=== PATIENT | male | born 1975 | race Caucasian/White ===

== ENCOUNTER 2018-09-25 05:40 | Observation (INO) | payer BC, OTHER ==
[2018-09-25] MEDS ORDERED: Aspirin 81 MG Tab.Chew PO ONE (05:55)
[2018-09-25] MEDS ORDERED: Sodium Chloride 0.9% 2.5 ML Syringe FLUSH PRN (05:56)
[2018-09-25] MEDS ORDERED: Sodium Chloride 0.9% 10 ML Syringe FLUSH PRN (05:56)
[2018-09-25] MEDS ORDERED: Labetalol 20 MG/4 ML Syringe IVPUSH ONE (05:56)
[2018-09-25] MEDS ORDERED: Nitroglycerin 2% Oint 1 GM UD Packet TOP ONE (05:56)
--- NOTE | 2018-09-25 05:57 | EDM.PDOC ---
ED HPI GENERAL MEDICAL PROBLEM - General Chief Complaint: Cardiovascular Problem Stated Complaint: CHEST PAIN AND SHORTNESS OF BREATH Time Seen by Provider: 09/25/18 05:48 - History of Present Illness INITIAL COMMENTS - FREE TEXT/NARRATIVE: HISTORY AND PHYSICAL: History of present illness: The patient is a 43-year-old male with a history of hypertension who is supposed to be taking lisinopril and hydrochlorothiazide but ran out of his meds 3 weeks ago due to relocation to [place] from [place] and not having a provider and who presents tonight with complaints of shortness of breath for the last one month cough and congestion for the last several days and elevated blood pressure of 200/150 at home this evening. The patient says that his shortness of breath started in mid July when he had a bronchitis and then he became more congested and thought he had some fluid in his lungs but he did not seek care from a provider. He said he thought he was improving and over the last 3 days it has gotten worse with more cough and congestion. He has not had a fever nausea or vomiting no abdominal pain and no urinary complaints. He denies any chest pain to me but says that his shortness of breath has been progressive since mid July. He also says that he has been out of his blood pressure medication and tonight his blood pressure was 200/150 and he thought he should be evaluated. The patient denies any leg pain or swelling. He has no cardiac history and on my evaluation he specifically tells me he is not having chest pain he is just feeling more short of breath. The patient has no history of asthma or COPD. the patient is telling me that he cannot lay flat in bed for the last 1 week and sleep because he feels short of breath and has been sleeping in a chair Review of systems: As per history of present illness and below otherwise all systems reviewed and negative. Past medical history: As per history of present illness and as reviewed below otherwise noncontributory. Surgical history: As per history of present illness and as reviewed below otherwise noncontributory. Social history: No reported history of drug or alcohol abuse. Family history: As per history of present illness and as reviewed below otherwise noncontributory. Physical exam: General: Well-developed well-nourished man who is nontoxic and vital signs are noted by me. His elevated blood pressure and tachycardia are also noted. He is speaking clearly and easily in the ED without breathlessness. It is noted that when the patient lays down for the physical exam as soon as I'm done with the abdominal exam he prefers to be in the seated position and not in the supine position HEENT: Atraumatic, normocephalic, negative for conjunctival pallor or scleral icterus, mucous membranes moist, throat clear, neck supple, nontender, trachea midline. Lungs: Clear to auscultation with some occasional coarse breath sounds but there are no rales or rhonchi no wheezing and no stridor and no work of breathing, breath sounds equal bilaterally, chest nontender. Heart: S1S2, regular rhythm but tachycardic rate on my evaluation of 110 and no overt murmur is appreciated. Abdomen: Soft, nondistended, nontender. Negative for masses or hepatosplenomegaly. Negative for costovertebral tenderness. Pelvis: Stable nontender. Genitourinary: Deferred. Rectal: Deferred. Extremities: Atraumatic, negative for cords or calf pain. Neurovascular unremarkable. No pedal edema or leg asymmetry Neuro: Awake, alert, oriented. Cranial nerves II through XII unremarkable. Cerebellum unremarkable. Motor and sensory unremarkable throughout. Exam nonfocal. Skin: There are no overt rashes or lesions and turgor is normal and there is no diaphoresis. The patient does have a somewhat sallow appearance of his skin color Diagnostics: EKG CBC CMP BNP troponin lactic acid influenza swab UA chest x-ray Therapeutics: IV O2 monitor aspirin labetalol and Nitropaste Repeat blood pressure is 209/142 but his heart rate is now 82 and the patient overall looks much better and feels better. He has better color and is able to sit back and relax. He says his breathing is also improving. We'll continue to monitor his workup and I have already discussed with the patient that he will likely need admission for blood pressure control and possible diuresis and he states understanding and is agreeable. 0700: Case is discussed with Dr. Valle who is aware of testing results and agrees with admission. He is aware of the troponin and the pending BNP. He would like to hold Lasix at this time until he evaluates the patient and the patient is aware that he will be admitted to the hospital and is agreeable. Patient overall looks much clinically improved Impression: Hypertension Urgency Definitive disposition and diagnosis as appropriate pending reevaluation and review of above. - Related Data Allergies Allergy/AdvReac Type Severity Reaction Status Date / Time No Known Allergies Allergy Verified 09/25/18 05:49 Home Meds: Home Meds Lisinopril 10 mg PO DAILY 05/13/18 [History] hydroCHLOROthiazide [Hydrochlorothiazide] 1 tab PO DAILY 09/25/18 [History] Past Medical History HEENT History: Reports: Impaired Vision Other HEENT History: wears glasses Cardiovascular History: Reports: Hypertension Genitourinary History: Reports: Renal Calculus - Infectious Disease History Infectious Disease History: Reports: Chicken Pox Social & Family History - Family History Family Medical History: Noncontributory - Tobacco Use Smoking Status *Q: Never Smoker - Recreational Drug Use Recreational Drug Use: No ED ROS GENERAL - Review of Systems Review Of Systems: ROS reveals no pertinent complaints other than HPI. ED EXAM, GENERAL - Physical Exam Exam: See Below (see dictation) Course - Vital Signs Last Recorded V/S: Last Vital Signs Temp 36.4 C 09/25/18 05:40 Pulse 80 09/25/18 06:54 Resp 18 09/25/18 06:54 BP 194/143 H 09/25/18 06:54 Pulse Ox 92 L 09/25/18 06:54 - Orders/Labs/Meds Orders: Active Orders 24 hr Category Date Time Status Cardiac Monitoring [RC] . DIRECTED Care 09/25/18 05:54 Active EKG 12 Lead [EKG Documentation Completion] [RC] STAT Care 09/25/18 06:55 Active EKG Documentation Completion [RC] STAT Care 09/25/18 05:54 Active Oxygen Therapy, ED [RC] ASDIRECTED Care 09/25/18 05:54 Active Pulse Oximetry [RC] ASDIRECTED Care 09/25/18 05:54 Active B-TYPE NATRIURETIC PEPTIDE,BNP [CHEM] Stat Lab 09/25/18 06:00 Received UA RFX PANKAJ AND CULT IF INDIC [URIN] Stat Lab 09/25/18 05:54 Ordered Sodium Chloride 0.9% [Saline Flush] Med 09/25/18 05:56 Active 10 ml FLUSH ASDIRECTED PRN Sodium Chloride 0.9% [Saline Flush] Med 09/25/18 05:56 Active 2.5 ml FLUSH ASDIRECTED PRN Saline Lock Insert [OM.PC] Stat Oth 09/25/18 05:54 Ordered Medication Orders Sodium Chloride (Saline Flush) 10 ml FLUSH ASDIRECTED PRN PRN Reason: Keep Vein Open Last Admin: 09/25/18 06:08 Dose: 10 ml Sodium Chloride (Saline Flush) 2.5 ml FLUSH ASDIRECTED PRN PRN Reason: Keep Vein Open Last Admin: 09/25/18 06:08 Dose: 2.5 ml Labs: Laboratory Tests 09/25/18 09/25/18 09/25/18 Range/Units 06:00 06:00 06:00 WBC 9.86 (4.0-11.0) K/uL RBC 4.83 (4.50-5.90) M/uL Hgb 14.5 (13.0-17.0) g/dL Hct 41.0 (38.0-50.0) % MCV 84.9 (80.0-98.0) fL MCH 30.0 (27.0-32.0) pg MCHC 35.4 (31.0-37.0) g/dL RDW Std Deviation 46.9 (28.0-62.0) fl RDW Coeff of Samson 15 (11.0-15.0) % Plt Count 242 (150-400) K/uL MPV 10.20 (7.40-12.00) fL Neut % (Auto) 81.1 H (48.0-80.0) % Lymph % (Auto) 11.6 L (16.0-40.0) % [place] % (Auto) 6.0 (0.0-15.0) % Eos % (Auto) 0.6 (0.0-7.0) % Baso % (Auto) 0.7 (0.0-1.5) % Neut # (Auto) 8.0 H (1.4-5.7) K/uL Lymph # (Auto) 1.1 (0.6-2.4) K/uL [place] # (Auto) 0.6 (0.0-0.8) K/uL Eos # (Auto) 0.1 (0.0-0.7) K/uL Baso # (Auto) 0.1 (0.0-0.1) K/uL Nucleated RBC % 0.0 /100WBC Nucleated RBCs # 0 K/uL Lactate 1.3 (0.20-2.00) mmol/L Sodium 141 (136-148) mmol/L Potassium 3.2 L (3.5-5.1) mmol/L Chloride 104 (98-107) mmol/L Carbon Dioxide 26.9 (21.0-32.0) mmol/L BUN 22 H (7.0-18.0) mg/dL Creatinine 2.2 H (0.8-1.3) mg/dL Est Cr Clr Drug Dosing 49.30 mL/min Estimated GFR (MDRD) 32.5 ml/min Glucose 113 H (74-106) mg/dL Calcium 8.9 (8.5-10.1) mg/dL Total Bilirubin 0.8 (0.2-1.0) mg/dL AST 26 (15-37) IU/L ALT 41 (14-63) IU/L Alkaline Phosphatase 106 (46-116) U/L Troponin I 0.077 H* (0.000-0.056) ng/mL Total Protein 7.7 (6.4-8.2) g/dL Albumin 3.5 (3.4-5.0) g/dL Globulin 4.2 H (2.6-4.0) g/dL Albumin/Globulin Ratio 0.8 L (0.9-1.6) Meds: Medications Generic Name Dose Route Start Last Admin Trade Name Freq PRN Reason Stop Dose Admin Sodium Chloride 10 ml 09/25/18 05:56 09/25/18 06:08 Saline Flush FLUSH 10 ml ASDIRECTED PRN Administration Keep Vein Open Sodium Chloride 2.5 ml 09/25/18 05:56 09/25/18 06:08 Saline Flush FLUSH 2.5 ml ASDIRECTED PRN Administration Keep Vein Open Discontinued Medications Generic Name Dose Route Start Last Admin Trade Name Freq PRN Reason Stop Dose Admin Aspirin 324 mg 09/25/18 05:55 09/25/18 06:08 Aspirin PO 09/25/18 05:56 324 mg ONETIME ONE Administration Labetalol HCl 20 mg 09/25/18 05:56 09/25/18 06:07 Normodyne IVPUSH 09/25/18 05:57 20 mg NOW ONE Administration Protocol Nitroglycerin 0.5 gm 09/25/18 05:56 09/25/18 06:08 Nitro-Bid 2% TOP 09/25/18 05:57 0.5 gm ONETIME ONE Administration Departure - Departure Time of Disposition: 07:03 Disposition: Refer to Observation Reason for Transfer *Q: Primary PCI Indicated Condition: Good Clinical Impression: Hypertensive urgency Forms: ED Department Discharge - My Orders Last 24 Hours: My Active Orders 09/25/18 05:54 Cardiac Monitoring [RC] . DIRECTED EKG Documentation Completion [RC] STAT Oxygen Therapy, ED [RC] ASDIRECTED Pulse Oximetry [RC] ASDIRECTED UA RFX PANKAJ AND CULT IF INDIC [URIN] Stat Saline Lock Insert [OM.PC] Stat 09/25/18 05:56 Sodium Chloride 0.9% [Saline Flush] 10 ml FLUSH ASDIRECTED PRN Sodium Chloride 0.9% [Saline Flush] 2.5 ml FLUSH ASDIRECTED PRN 09/25/18 06:00 B-TYPE NATRIURETIC PEPTIDE,BNP [CHEM] Stat 09/25/18 06:55 EKG 12 Lead [EKG Documentation Completion] [RC] STAT - Assessment/Plan Last 24 Hours: My Active Orders 09/25/18 05:54 Cardiac Monitoring [RC] . DIRECTED EKG Documentation Completion [RC] STAT Oxygen Therapy, ED [RC] ASDIRECTED Pulse Oximetry [RC] ASDIRECTED UA RFX PANKAJ AND CULT IF INDIC [URIN] Stat Saline Lock Insert [OM.PC] Stat 09/25/18 05:56 Sodium Chloride 0.9% [Saline Flush] 10 ml FLUSH ASDIRECTED PRN Sodium Chloride 0.9% [Saline Flush] 2.5 ml FLUSH ASDIRECTED PRN 09/25/18 06:00 B-TYPE NATRIURETIC PEPTIDE,BNP [CHEM] Stat 09/25/18 06:55 EKG 12 Lead [EKG Documentation Completion] [RC] STAT
--- NOTE | 2018-09-25 06:17 | CR ---
INDICATION: chest pain/shortness of breath. 1 image. no prior TECHNIQUE: Chest 1 view. COMPARISON: None. FINDINGS: Cardiovascular and mediastinum: Heart size and vasculature are normal in caliber and appearance. Mediastinum is within normal limits. Lungs and pleural space: Lungs are clear. No sign of infiltrate or mass. No sign of pleural effusion. No pneumothorax. Bones and soft tissues: No significant findings. IMPRESSION: Unremarkable chest. Dictated by: Gavin Bethea MD @ 09/25/2018 06:16:09 (Electronically Signed)
[2018-09-25] MEDS ORDERED: Furosemide 40 MG/4 ML VIAL IVPUSH ONE (09:40)
[2018-09-25] MEDS ORDERED: Lisinopril 10 MG Tab PO SCH (09:45)
[2018-09-25] MEDS: Heparin Sodium 5,000 Units/ML Vial SUBCUT SCH ×3 (10:32→21:14)
[2018-09-25] MEDS: Acetaminophen 325 MG Tab PO PRN ×2 (10:33→17:23)
[2018-09-25] MEDS: Hydrochlorothiazide 25 MG Tab PO SCH (10:33)
[2018-09-25] MEDS ORDERED: cloNIDine 0.1 MG Tab PO ONE (16:44)
[2018-09-25] MEDS ORDERED: Potassium Chloride 20 MEQ Tab.ER PO ONE (19:29)
--- NOTE | 2018-09-25 19:35 | PCM.HP ---
H&P History of Present Illness - General Date of Service: 09/25/18 Admit Problem/Dx: Admission Diagnosis/Problem Admission Diagnosis/Problem Hypertensive urgency - History of Present Illness Initial Comments - Free Text/Narative: 43 yo male with pmh of hypertension who ran out of his HCTZ and lisinopril medications three months ago. He presents today with a complaint of elevated blood pressure in the 200s systolic and not feeling well. He does admit to shortness of breath when lying down. He denies any exertional dyspnea, leg swelling or weight gain. He reports a history of kidney stones but denies any other kidney disease. He beleives his shortness of breath was cause by eating cheese as he is lactose intolerant. - Related Data Allergies/Adverse Reactions: Allergies Allergy/AdvReac Type Severity Reaction Status Date / Time Latex, Natural Rubber Allergy Rash Verified 09/25/18 08:50 Home Medications: Home Meds Lisinopril 10 mg PO DAILY 05/13/18 [History] hydroCHLOROthiazide [Hydrochlorothiazide] 25 mg PO DAILY 09/25/18 [History] Past Medical History - Past Health History Medical/Surgical History: Denies Medical/Surgical History HEENT History: Reports: Impaired Vision Other HEENT History: wears glasses, Tubes in ears, Ruptured ear drum/possibly both Cardiovascular History: Reports: Hypertension Respiratory History: Reports: Asthma Other Respiratory History: Asthma as a child Genitourinary History: Reports: Renal Calculus Other Musculoskeletal History: Hx of Shoulder seperation - Infectious Disease History Infectious Disease History: Reports: Chicken Pox - Past Surgical History GI Surgical History: Reports: Appendectomy Other GI Surgeries/Procedures: Appendicitis, Burst. Social & Family History - Family History Family Medical History: Noncontributory - Tobacco Use Smoking Status *Q: Never Smoker - Caffeine Use Caffeine Use: Reports: Coffee Other Caffeine Use: 2x per week - Recreational Drug Use Recreational Drug Use: No H&P Review of Systems - Review of Systems: Review Of Systems: ROS reveals no pertinent complaints other than HPI. Exam - Exam Exam: See Below - Vital Signs Vital Signs: Last Vital Signs Temp 36.3 C 09/25/18 15:13 Pulse 92 09/25/18 15:13 Resp 30 H 09/25/18 15:13 BP 196/131 H 09/25/18 17:21 Pulse Ox 95 04/07/19 15:13 Weight: 122.243 kg - Exam General: Alert, Oriented Neck: Supple, Trachea Midline Lungs: Clear to Auscultation, Normal Respiratory Effort Cardiovascular: Regular Rate, Regular Rhythm GI/Abdominal Exam: Normal Bowel Sounds, Soft, Non-Tender Extremities: Non-Tender, Pedal Edema (mild pedal) Skin: Warm, Dry, Intact - Patient Data Lab Results Last 24 hrs: Laboratory Results - last 24 hr 09/25/18 09/25/18 09/25/18 Range/Units 06:00 06:00 06:00 WBC 9.86 (4.0-11.0) K/uL RBC 4.83 (4.50-5.90) M/uL Hgb 14.5 (13.0-17.0) g/dL Hct 41.0 (38.0-50.0) % MCV 84.9 (80.0-98.0) fL MCH 30.0 (27.0-32.0) pg MCHC 35.4 (31.0-37.0) g/dL RDW Std Deviation 46.9 (28.0-62.0) fl RDW Coeff of Samson 15 (11.0-15.0) % Plt Count 242 (150-400) K/uL MPV 10.20 (7.40-12.00) fL Neut % (Auto) 81.1 H (48.0-80.0) % Lymph % (Auto) 11.6 L (16.0-40.0) % [place] % (Auto) 6.0 (0.0-15.0) % Eos % (Auto) 0.6 (0.0-7.0) % Baso % (Auto) 0.7 (0.0-1.5) % Neut # (Auto) 8.0 H (1.4-5.7) K/uL Lymph # (Auto) 1.1 (0.6-2.4) K/uL [place] # (Auto) 0.6 (0.0-0.8) K/uL Eos # (Auto) 0.1 (0.0-0.7) K/uL Baso # (Auto) 0.1 (0.0-0.1) K/uL Nucleated RBC % 0.0 /100WBC Nucleated RBCs # 0 K/uL Lactate 1.3 (0.20-2.00) mmol/L Sodium 141 (136-148) mmol/L Potassium 3.2 L (3.5-5.1) mmol/L Chloride 104 (98-107) mmol/L Carbon Dioxide 26.9 (21.0-32.0) mmol/L BUN 22 H (7.0-18.0) mg/dL Creatinine 2.2 H (0.8-1.3) mg/dL Est Cr Clr Drug Dosing 49.30 mL/min Estimated GFR (MDRD) 32.5 ml/min Glucose 113 H (74-106) mg/dL POC Glucose (60-110) mg/dL Calcium 8.9 (8.5-10.1) mg/dL Total Bilirubin 0.8 (0.2-1.0) mg/dL AST 26 (15-37) IU/L ALT 41 (14-63) IU/L Alkaline Phosphatase 106 (46-116) U/L Troponin I 0.077 H* (0.000-0.056) ng/mL B-Natriuretic Peptide (<100) PG/ML Total Protein 7.7 (6.4-8.2) g/dL Albumin 3.5 (3.4-5.0) g/dL Globulin 4.2 H (2.6-4.0) g/dL Albumin/Globulin Ratio 0.8 L (0.9-1.6) Urine Color Urine Appearance Urine pH (5.0-8.0) Ur Specific [place] (1.001-1.035) Urine Protein (NEGATIVE) mg/dL Urine Glucose (UA) (NEGATIVE) mg/dL Urine Ketones (NEGATIVE) mg/dL Urine Occult Blood (NEGATIVE) Urine Nitrite (NEGATIVE) Urine Bilirubin (NEGATIVE) Urine Urobilinogen (<2.0) EU/dL Ur Leukocyte Esterase (NEGATIVE) Urine RBC (0-2/HPF) Urine WBC (0-5/HPF) Ur Epithelial Cells (NONE-FEW) Amorphous Sediment (NEGATIVE) Urine Bacteria (NEGATIVE) 09/25/18 09/25/18 09/25/18 Range/Units 06:00 07:20 11:53 WBC (4.0-11.0) K/uL RBC (4.50-5.90) M/uL Hgb (13.0-17.0) g/dL Hct (38.0-50.0) % MCV (80.0-98.0) fL MCH (27.0-32.0) pg MCHC (31.0-37.0) g/dL RDW Std Deviation (28.0-62.0) fl RDW Coeff of Samson (11.0-15.0) % Plt Count (150-400) K/uL MPV (7.40-12.00) fL Neut % (Auto) (48.0-80.0) % Lymph % (Auto) (16.0-40.0) % [place] % (Auto) (0.0-15.0) % Eos % (Auto) (0.0-7.0) % Baso % (Auto) (0.0-1.5) % Neut # (Auto) (1.4-5.7) K/uL Lymph # (Auto) (0.6-2.4) K/uL [place] # (Auto) (0.0-0.8) K/uL Eos # (Auto) (0.0-0.7) K/uL Baso # (Auto) (0.0-0.1) K/uL Nucleated RBC % /100WBC Nucleated RBCs # K/uL Lactate (0.20-2.00) mmol/L Sodium (136-148) mmol/L Potassium (3.5-5.1) mmol/L Chloride (98-107) mmol/L Carbon Dioxide (21.0-32.0) mmol/L BUN (7.0-18.0) mg/dL Creatinine (0.8-1.3) mg/dL Est Cr Clr Drug Dosing mL/min Estimated GFR (MDRD) ml/min Glucose (74-106) mg/dL POC Glucose (60-110) mg/dL Calcium (8.5-10.1) mg/dL Total Bilirubin (0.2-1.0) mg/dL AST (15-37) IU/L ALT (14-63) IU/L Alkaline Phosphatase (46-116) U/L Troponin I 0.061 H* (0.000-0.056) ng/mL B-Natriuretic Peptide 251 H (<100) PG/ML Total Protein (6.4-8.2) g/dL Albumin (3.4-5.0) g/dL Globulin (2.6-4.0) g/dL Albumin/Globulin Ratio (0.9-1.6) Urine Color YELLOW Urine Appearance SLT CLOUDY Urine pH 6.0 (5.0-8.0) Ur Specific [place] 1.025 (1.001-1.035) Urine Protein 100 H (NEGATIVE) mg/dL Urine Glucose (UA) NEGATIVE (NEGATIVE) mg/dL Urine Ketones NEGATIVE (NEGATIVE) mg/dL Urine Occult Blood SMALL H (NEGATIVE) Urine Nitrite NEGATIVE (NEGATIVE) Urine Bilirubin NEGATIVE (NEGATIVE) Urine Urobilinogen 0.2 (<2.0) EU/dL Ur Leukocyte Esterase NEGATIVE (NEGATIVE) Urine RBC 0-2 (0-2/HPF) Urine WBC 0-2 (0-5/HPF) Ur Epithelial Cells RARE (NONE-FEW) Amorphous Sediment LIGHT (NEGATIVE) Urine Bacteria FEW (NEGATIVE) 09/25/18 09/25/18 Range/Units 17:26 18:00 WBC (4.0-11.0) K/uL RBC (4.50-5.90) M/uL Hgb (13.0-17.0) g/dL Hct (38.0-50.0) % MCV (80.0-98.0) fL MCH (27.0-32.0) pg MCHC (31.0-37.0) g/dL RDW Std Deviation (28.0-62.0) fl RDW Coeff of Samson (11.0-15.0) % Plt Count (150-400) K/uL MPV (7.40-12.00) fL Neut % (Auto) (48.0-80.0) % Lymph % (Auto) (16.0-40.0) % [place] % (Auto) (0.0-15.0) % Eos % (Auto) (0.0-7.0) % Baso % (Auto) (0.0-1.5) % Neut # (Auto) (1.4-5.7) K/uL Lymph # (Auto) (0.6-2.4) K/uL [place] # (Auto) (0.0-0.8) K/uL Eos # (Auto) (0.0-0.7) K/uL Baso # (Auto) (0.0-0.1) K/uL Nucleated RBC % /100WBC Nucleated RBCs # K/uL Lactate (0.20-2.00) mmol/L Sodium (136-148) mmol/L Potassium (3.5-5.1) mmol/L Chloride (98-107) mmol/L Carbon Dioxide (21.0-32.0) mmol/L BUN (7.0-18.0) mg/dL Creatinine (0.8-1.3) mg/dL Est Cr Clr Drug Dosing mL/min Estimated GFR (MDRD) ml/min Glucose (74-106) mg/dL POC Glucose 103 (60-110) mg/dL Calcium (8.5-10.1) mg/dL Total Bilirubin (0.2-1.0) mg/dL AST (15-37) IU/L ALT (14-63) IU/L Alkaline Phosphatase (46-116) U/L Troponin I 0.052 (0.000-0.056) ng/mL B-Natriuretic Peptide (<100) PG/ML Total Protein (6.4-8.2) g/dL Albumin (3.4-5.0) g/dL Globulin (2.6-4.0) g/dL Albumin/Globulin Ratio (0.9-1.6) Urine Color Urine Appearance Urine pH (5.0-8.0) Ur Specific [place] (1.001-1.035) Urine Protein (NEGATIVE) mg/dL Urine Glucose (UA) (NEGATIVE) mg/dL Urine Ketones (NEGATIVE) mg/dL Urine Occult Blood (NEGATIVE) Urine Nitrite (NEGATIVE) Urine Bilirubin (NEGATIVE) Urine Urobilinogen (<2.0) EU/dL Ur Leukocyte Esterase (NEGATIVE) Urine RBC (0-2/HPF) Urine WBC (0-5/HPF) Ur Epithelial Cells (NONE-FEW) Amorphous Sediment (NEGATIVE) Urine Bacteria (NEGATIVE) Result Diagrams: 09/26/18 05:54 09/26/18 05:54 Jaxon Results Last 24 hrs: Microbiology 09/25/18 06:15 Influenza Type A Antigen Screen - Final Nasopharyngeal Swab NEGATIVE INFLUENZA A VIRUS AG Influenza Type B Antigen Screen - Final NEGATIVE INFLUENZA B VIRUS AG Problem List Initiated/Reviewed/Updated: Yes Orders Last 24hrs: Active Orders 24 hr Category Date Time Status Patient Status [ADT] Stat ADT 09/25/18 07:09 Active Antiembolic Devices [RC] PER UNIT ROUTINE Care 09/25/18 09:41 Active Cardiac Monitoring [RC] Q8H Care 09/25/18 05:54 Active Oxygen Therapy [RC] PRN Care 09/25/18 09:41 Active Pulse Oximetry [RC] ASDIRECTED Care 09/25/18 05:54 Active Up ad [place] [RC] ASDIRECTED Care 09/25/18 09:41 Active VTE/DVT Education [RC] PER UNIT ROUTINE Care 09/25/18 09:41 Active Vital Signs [RC] Q4H Care 09/25/18 09:41 Active Regular Diet [DIET] Diet 09/25/18 Breakfast Active Echo Comp wo Cont [US] AM Exams 09/26/18 05:11 Ordered BASIC METABOLIC PANEL,BMP [CHEM] AM Lab 09/26/18 05:11 Ordered CBC WITH AUTO DIFF [HEME] AM Lab 09/26/18 05:11 Ordered Acetaminophen [Tylenol] Med 09/25/18 10:23 Active 650 mg PO Q6H PRN Heparin Sodium Med 09/25/18 09:45 Active 5,000 units SUBCUT Q8HR Lisinopril [Prinivil] Med 09/25/18 09:45 Active 10 mg PO DAILY Potassium Chloride [Klor-Con M20] Med 09/25/18 19:29 Once 20 meq PO ONETIME ONE Sodium Chloride 0.9% [Saline Flush] Med 09/25/18 05:56 Active 10 ml FLUSH ASDIRECTED PRN Sodium Chloride 0.9% [Saline Flush] Med 09/25/18 05:56 Active 2.5 ml FLUSH ASDIRECTED PRN hydroCHLOROthiazide Med 09/25/18 09:45 Active 25 mg PO DAILY Saline Lock Insert [OM.PC] Stat Oth 09/25/18 05:54 Ordered Sequential Compression Device [OM.PC] Per Unit Routine Oth 09/25/18 09:41 Ordered Resuscitation Status Routine Resus Stat 09/25/18 09:41 Ordered Medication Orders Acetaminophen (Tylenol) 650 mg PO Q6H PRN PRN Reason: Pain Last Admin: 09/25/18 17:23 Dose: 650 mg Admin: 09/25/18 10:33 Dose: 650 mg Heparin Sodium (Porcine) (Heparin Sodium) 5,000 units SUBCUT Q8HR [facility] Last Admin: 09/25/18 15:10 Dose: 5,000 units Admin: 09/25/18 10:32 Dose: 5,000 units Hydrochlorothiazide (Hydrochlorothiazide) 25 mg PO DAILY [facility] Last Admin: 09/25/18 10:33 Dose: 25 mg Lisinopril (Prinivil) 10 mg PO DAILY [facility] Last Admin: 09/25/18 10:33 Dose: 10 mg Potassium Chloride (Klor-Con M20) 20 meq PO ONETIME ONE Stop: 09/25/18 19:30 Sodium Chloride (Saline Flush) 10 ml FLUSH ASDIRECTED PRN PRN Reason: Keep Vein Open Last Admin: 09/25/18 06:08 Dose: 10 ml Sodium Chloride (Saline Flush) 2.5 ml FLUSH ASDIRECTED PRN PRN Reason: Keep Vein Open Last Admin: 09/25/18 06:08 Dose: 2.5 ml Assessment/Plan Comment:: 43 yo male admitted for hypertension and shortness of breath. He was restarted on his home medications and given IV lasix. Will continue to monitor his kidney function and obtain echocardiogram.
[2018-09-25] MEDS: cloNIDine 0.1 MG Tab PO SCH (21:14)
[2018-09-26] MEDS: Heparin Sodium 5,000 Units/ML Vial SUBCUT SCH ×3 (06:08→21:32)
--- NOTE | 2018-09-26 07:24 | PCM.PN ---
- General Info Date of Service: 09/26/18 - Review of Systems Systems Review Comment:: patient reports shortness of breath improved, no headache, no blurred vision. no chest pain. - Patient Data Vitals - Most Recent: Last Vital Signs Temp 36.0 C 09/26/18 04:50 Pulse 67 09/26/18 04:50 Resp 18 09/26/18 04:50 BP 189/124 H 09/26/18 04:50 Pulse Ox 97 09/26/18 04:50 Weight - Most Recent: 122.243 kg I&O - Last 24 Hours: Intake & Output 09/25/18 09/26/18 09/26/18 22:59 06:59 14:59 Output Total 750 Balance -750 Lab Results Last 24 Hours: Laboratory Results - last 24 hr 09/25/18 09/25/18 09/25/18 Range/Units 07:20 11:53 17:26 WBC (4.0-11.0) K/uL RBC (4.50-5.90) M/uL Hgb (13.0-17.0) g/dL Hct (38.0-50.0) % MCV (80.0-98.0) fL MCH (27.0-32.0) pg MCHC (31.0-37.0) g/dL RDW Std Deviation (28.0-62.0) fl RDW Coeff of Samson (11.0-15.0) % Plt Count (150-400) K/uL MPV (7.40-12.00) fL Neut % (Auto) (48.0-80.0) % Lymph % (Auto) (16.0-40.0) % [place] % (Auto) (0.0-15.0) % Eos % (Auto) (0.0-7.0) % Baso % (Auto) (0.0-1.5) % Neut # (Auto) (1.4-5.7) K/uL Lymph # (Auto) (0.6-2.4) K/uL [place] # (Auto) (0.0-0.8) K/uL Eos # (Auto) (0.0-0.7) K/uL Baso # (Auto) (0.0-0.1) K/uL Nucleated RBC % /100WBC Nucleated RBCs # K/uL Sodium (136-148) mmol/L Potassium (3.5-5.1) mmol/L Chloride (98-107) mmol/L Carbon Dioxide (21.0-32.0) mmol/L BUN (7.0-18.0) mg/dL Creatinine (0.8-1.3) mg/dL Est Cr Clr Drug Dosing mL/min Estimated GFR (MDRD) ml/min Glucose (74-106) mg/dL POC Glucose 103 (60-110) mg/dL Calcium (8.5-10.1) mg/dL Troponin I 0.061 H* (0.000-0.056) ng/mL Urine Color YELLOW Urine Appearance SLT CLOUDY Urine pH 6.0 (5.0-8.0) Ur Specific [place] 1.025 (1.001-1.035) Urine Protein 100 H (NEGATIVE) mg/dL Urine Glucose (UA) NEGATIVE (NEGATIVE) mg/dL Urine Ketones NEGATIVE (NEGATIVE) mg/dL Urine Occult Blood SMALL H (NEGATIVE) Urine Nitrite NEGATIVE (NEGATIVE) Urine Bilirubin NEGATIVE (NEGATIVE) Urine Urobilinogen 0.2 (<2.0) EU/dL Ur Leukocyte Esterase NEGATIVE (NEGATIVE) Urine RBC 0-2 (0-2/HPF) Urine WBC 0-2 (0-5/HPF) Ur Epithelial Cells RARE (NONE-FEW) Amorphous Sediment LIGHT (NEGATIVE) Urine Bacteria FEW (NEGATIVE) 09/25/18 09/26/18 09/26/18 Range/Units 18:00 05:54 05:54 WBC 7.67 (4.0-11.0) K/uL RBC 4.43 L (4.50-5.90) M/uL Hgb 13.1 (13.0-17.0) g/dL Hct 37.7 L (38.0-50.0) % MCV 85.1 (80.0-98.0) fL MCH 29.6 (27.0-32.0) pg MCHC 34.7 (31.0-37.0) g/dL RDW Std Deviation 47.3 (28.0-62.0) fl RDW Coeff of Samson 15 (11.0-15.0) % Plt Count 219 (150-400) K/uL MPV 10.30 (7.40-12.00) fL Neut % (Auto) 76.0 (48.0-80.0) % Lymph % (Auto) 14.7 L (16.0-40.0) % [place] % (Auto) 8.1 (0.0-15.0) % Eos % (Auto) 0.7 (0.0-7.0) % Baso % (Auto) 0.5 (0.0-1.5) % Neut # (Auto) 5.8 H (1.4-5.7) K/uL Lymph # (Auto) 1.1 (0.6-2.4) K/uL [place] # (Auto) 0.6 (0.0-0.8) K/uL Eos # (Auto) 0.1 (0.0-0.7) K/uL Baso # (Auto) 0.0 (0.0-0.1) K/uL Nucleated RBC % 0.0 /100WBC Nucleated RBCs # 0 K/uL Sodium 141 (136-148) mmol/L Potassium 3.0 L (3.5-5.1) mmol/L Chloride 104 (98-107) mmol/L Carbon Dioxide 28.0 (21.0-32.0) mmol/L BUN 22 H (7.0-18.0) mg/dL Creatinine 2.3 H (0.8-1.3) mg/dL Est Cr Clr Drug Dosing 47.16 mL/min Estimated GFR (MDRD) 30.9 ml/min Glucose 101 (74-106) mg/dL POC Glucose (60-110) mg/dL Calcium 8.5 (8.5-10.1) mg/dL Troponin I 0.052 (0.000-0.056) ng/mL Urine Color Urine Appearance Urine pH (5.0-8.0) Ur Specific [place] (1.001-1.035) Urine Protein (NEGATIVE) mg/dL Urine Glucose (UA) (NEGATIVE) mg/dL Urine Ketones (NEGATIVE) mg/dL Urine Occult Blood (NEGATIVE) Urine Nitrite (NEGATIVE) Urine Bilirubin (NEGATIVE) Urine Urobilinogen (<2.0) EU/dL Ur Leukocyte Esterase (NEGATIVE) Urine RBC (0-2/HPF) Urine WBC (0-5/HPF) Ur Epithelial Cells (NONE-FEW) Amorphous Sediment (NEGATIVE) Urine Bacteria (NEGATIVE) Jaxon Results Last 24 Hours: Microbiology 09/25/18 06:15 Influenza Type A Antigen Screen - Final Nasopharyngeal Swab NEGATIVE INFLUENZA A VIRUS AG Influenza Type B Antigen Screen - Final NEGATIVE INFLUENZA B VIRUS AG Med Orders - Current: Current Medications Acetaminophen (Tylenol) 650 mg PO Q6H PRN PRN Reason: Pain Last Admin: 09/25/18 17:23 Dose: 650 mg Clonidine HCl (Catapres) 0.1 mg PO Q12HR [facility] Last Admin: 09/25/18 21:14 Dose: 0.1 mg Heparin Sodium (Porcine) (Heparin Sodium) 5,000 units SUBCUT Q8HR [facility] Last Admin: 09/26/18 06:08 Dose: 5,000 units Hydrochlorothiazide (Hydrochlorothiazide) 25 mg PO DAILY [facility] Last Admin: 09/25/18 10:33 Dose: 25 mg Lisinopril (Prinivil) 20 mg PO DAILY [facility] Sodium Chloride (Saline Flush) 10 ml FLUSH ASDIRECTED PRN PRN Reason: Keep Vein Open Last Admin: 09/25/18 06:08 Dose: 10 ml Sodium Chloride (Saline Flush) 2.5 ml FLUSH ASDIRECTED PRN PRN Reason: Keep Vein Open Last Admin: 09/25/18 06:08 Dose: 2.5 ml Discontinued Medications Aspirin (Aspirin) 324 mg PO ONETIME ONE Stop: 09/25/18 05:56 Last Admin: 09/25/18 06:08 Dose: 324 mg Clonidine HCl (Catapres) 0.1 mg PO ONETIME ONE Stop: 09/25/18 16:45 Last Admin: 09/25/18 16:56 Dose: 0.1 mg Furosemide (Lasix) 40 mg IVPUSH NOW ONE Stop: 09/25/18 09:41 Last Admin: 09/25/18 10:32 Dose: 40 mg Labetalol HCl (Normodyne) 20 mg IVPUSH NOW ONE; Protocol Stop: 09/25/18 05:57 Last Admin: 09/25/18 06:07 Dose: 20 mg Lisinopril (Prinivil) 10 mg PO DAILY [facility] Last Admin: 09/25/18 10:33 Dose: 10 mg Nitroglycerin (Nitro-Bid 2%) 0.5 gm TOP ONETIME ONE Stop: 09/25/18 05:57 Last Admin: 09/25/18 06:08 Dose: 0.5 gm Potassium Chloride (Klor-Con M20) 20 meq PO ONETIME ONE Stop: 09/25/18 19:30 Last Admin: 09/25/18 20:37 Dose: 20 meq - Exam General: Alert, Oriented HEENT: Mucous Membr. Moist/[place] Neck: Supple Lungs: Clear to Auscultation, Normal Respiratory Effort Cardiovascular: Regular Rate, Regular Rhythm GI/Abdominal Exam: Normal Bowel Sounds, Soft, Non-Tender Extremities: No Pedal Edema Skin: Warm, Dry, Intact - Problem List Review Problem List Initiated/Reviewed/Updated: Yes - My Orders Last 24 Hours: My Active Orders 09/25/18 09:41 Antiembolic Devices [RC] PER UNIT ROUTINE Oxygen Therapy [RC] PRN Up ad [place] [RC] ASDIRECTED VTE/DVT Education [RC] PER UNIT ROUTINE Vital Signs [RC] Q4H Sequential Compression Device [OM.PC] Per Unit Routine Resuscitation Status Routine 09/25/18 09:45 Heparin Sodium 5,000 units SUBCUT Q8HR hydroCHLOROthiazide 25 mg PO DAILY 09/25/18 10:23 Acetaminophen [Tylenol] 650 mg PO Q6H PRN 09/25/18 21:00 cloNIDine [Catapres] 0.1 mg PO Q12HR 09/25/18 Breakfast Regular Diet [DIET] 09/26/18 05:11 Echo Comp wo Cont [US] AM 09/26/18 09:00 Lisinopril [Prinivil] 20 mg PO DAILY - Plan Plan:: 43 yo male admitted for hypertensive urgency with shortness of breath and mildly elevated troponins.. His blood pressure is lower at 160s-180s systolic and troponins normalized. Echocardiogram is pending. His home antihypertensive medications were resumed yesterday as well as starting clonidine. We will increase his lisinopril to 20mg daily.
[2018-09-26] MEDS: Lisinopril 10 MG Tab PO SCH (09:26)
[2018-09-26] MEDS: Hydrochlorothiazide 25 MG Tab PO SCH (09:28)
[2018-09-26] MEDS: cloNIDine 0.1 MG Tab PO SCH ×2 (09:28→21:34)
[2018-09-26] MEDS ORDERED: Potassium Chloride 20 MEQ Tab.ER PO ONE (14:27)
[2018-09-27] MEDS: Heparin Sodium 5,000 Units/ML Vial SUBCUT SCH ×2 (06:04→13:53)
[2018-09-27] MEDS: Hydrochlorothiazide 25 MG Tab PO SCH (08:35)
[2018-09-27] MEDS: Lisinopril 10 MG Tab PO SCH (08:37)
[2018-09-27] MEDS: cloNIDine 0.1 MG Tab PO SCH (08:37)
--- NOTE | 2018-09-27 08:51 | PCM.PN ---
- Patient Data Vitals - Most Recent: Last Vital Signs Temp 36.5 C 09/27/18 07:45 Pulse 79 09/27/18 08:36 Resp 18 09/27/18 07:45 BP 192/133 H 09/27/18 08:37 Pulse Ox 98 09/27/18 07:45 Weight - Most Recent: 122.243 kg I&O - Last 24 Hours: Intake & Output 09/26/18 09/27/18 09/27/18 22:59 06:59 14:59 Intake Total 800 1000 Output Total 500 500 Balance 300 500 Lab Results Last 24 Hours: Laboratory Results - last 24 hr 09/27/18 09/27/18 Range/Units 05:35 05:35 WBC 6.25 (4.0-11.0) K/uL RBC 4.53 (4.50-5.90) M/uL Hgb 13.2 (13.0-17.0) g/dL Hct 39.2 (38.0-50.0) % MCV 86.5 (80.0-98.0) fL MCH 29.1 (27.0-32.0) pg MCHC 33.7 (31.0-37.0) g/dL RDW Std Deviation 47.9 (28.0-62.0) fl RDW Coeff of Samson 16 H (11.0-15.0) % Plt Count 204 (150-400) K/uL MPV 10.40 (7.40-12.00) fL Neut % (Auto) 68.8 (48.0-80.0) % Lymph % (Auto) 18.7 (16.0-40.0) % [place] % (Auto) 10.7 (0.0-15.0) % Eos % (Auto) 1.0 (0.0-7.0) % Baso % (Auto) 0.8 (0.0-1.5) % Neut # (Auto) 4.3 (1.4-5.7) K/uL Lymph # (Auto) 1.2 (0.6-2.4) K/uL [place] # (Auto) 0.7 (0.0-0.8) K/uL Eos # (Auto) 0.1 (0.0-0.7) K/uL Baso # (Auto) 0.1 (0.0-0.1) K/uL Nucleated RBC % 0.0 /100WBC Nucleated RBCs # 0 K/uL Sodium 142 (136-148) mmol/L Potassium 4.2 (3.5-5.1) mmol/L Chloride 107 (98-107) mmol/L Carbon Dioxide 29.2 (21.0-32.0) mmol/L BUN 22 H (7.0-18.0) mg/dL Creatinine 2.3 H (0.8-1.3) mg/dL Est Cr Clr Drug Dosing 47.16 mL/min Estimated GFR (MDRD) 30.9 ml/min Glucose 101 (74-106) mg/dL Calcium 8.8 (8.5-10.1) mg/dL Med Orders - Current: Current Medications Acetaminophen (Tylenol) 650 mg PO Q6H PRN PRN Reason: Pain Last Admin: 09/25/18 17:23 Dose: 650 mg Heparin Sodium (Porcine) (Heparin Sodium) 5,000 units SUBCUT Q8HR [facility] Last Admin: 09/27/18 06:04 Dose: 5,000 units Hydrochlorothiazide (Hydrochlorothiazide) 25 mg PO DAILY [facility] Last Admin: 09/27/18 08:35 Dose: 25 mg Lisinopril (Prinivil) 20 mg PO DAILY [facility] Last Admin: 09/27/18 08:37 Dose: 20 mg Metoprolol Succinate (Toprol Xl) 50 mg PO DAILY [facility] Last Admin: 09/27/18 08:36 Dose: 50 mg Sodium Chloride (Saline Flush) 10 ml FLUSH ASDIRECTED PRN PRN Reason: Keep Vein Open Last Admin: 09/25/18 06:08 Dose: 10 ml Sodium Chloride (Saline Flush) 2.5 ml FLUSH ASDIRECTED PRN PRN Reason: Keep Vein Open Last Admin: 09/25/18 06:08 Dose: 2.5 ml Discontinued Medications Aspirin (Aspirin) 324 mg PO ONETIME ONE Stop: 09/25/18 05:56 Last Admin: 09/25/18 06:08 Dose: 324 mg Clonidine HCl (Catapres) 0.1 mg PO ONETIME ONE Stop: 09/25/18 16:45 Last Admin: 09/25/18 16:56 Dose: 0.1 mg Clonidine HCl (Catapres) 0.1 mg PO Q12HR [facility] Last Admin: 09/27/18 08:37 Dose: 0.1 mg Furosemide (Lasix) 40 mg IVPUSH NOW ONE Stop: 09/25/18 09:41 Last Admin: 09/25/18 10:32 Dose: 40 mg Labetalol HCl (Normodyne) 20 mg IVPUSH NOW ONE; Protocol Stop: 09/25/18 05:57 Last Admin: 09/25/18 06:07 Dose: 20 mg Lisinopril (Prinivil) 10 mg PO DAILY [facility] Last Admin: 09/25/18 10:33 Dose: 10 mg Nitroglycerin (Nitro-Bid 2%) 0.5 gm TOP ONETIME ONE Stop: 09/25/18 05:57 Last Admin: 09/25/18 06:08 Dose: 0.5 gm Potassium Chloride (Klor-Con M20) 20 meq PO ONETIME ONE Stop: 09/25/18 19:30 Last Admin: 09/25/18 20:37 Dose: 20 meq Potassium Chloride (Klor-Con M20) 40 meq PO ONETIME ONE Stop: 09/26/18 14:28 Last Admin: 09/26/18 15:38 Dose: 40 meq - My Orders Last 24 Hours: My Active Orders 09/27/18 09:00 Metoprolol Succinate [Toprol XL] 50 mg PO DAILY cloNIDine [Catapres] 0.2 mg PO Q8H - Plan Plan:: 43 yo male admitted for hypertensive urgency with shortness of breath and mildly elevated troponins.. His blood pressure is lower at 160s-180s systolic and troponins normalized. Echocardiogram is pending. His home antihypertensive medications were resumed yesterday as well as starting clonidine. We will increase his lisinopril to 20mg daily.
[2018-09-27] MEDS ORDERED: cloNIDine 0.1 MG Tab PO ONE (09:00)
[2018-09-27] MEDS ORDERED: Metoprolol Succinate 50 MG Tab.ER PO SCH (09:00)
--- NOTE | 2018-09-27 13:41 | PCM.DCSUM1 ---
Discharge Summary - Hospital Course Diagnosis: Stroke: No - Discharge Data Discharge Date: 09/27/18 Discharge Disposition: Home, Self-Care 01 Condition: Good - Patient Summary/Data Hospital Course: The patient is a 43-year-old gentleman who had been admitted to the emergency department and admitted on September 25, 2018 secondary to hypertensive urgency. The patient has said that he had run out of his antihypertensive medication and was unable to obtain medications for about 3 weeks. The patient had been taking lisinopril 10 mg by mouth daily and hydrochlorothiazide 25 mg by mouth daily. Upon presentation to the emergency department had been as high as 200/147 mmHg. The patient also has had a history of some shortness of breath to accompany this. The patient also had a 2-D echocardiogram completed which the results are currently pending. The patient had continued to improve although he did require when necessary medication to help control his pressures. The patient's examination have remained benign. During hospitalization the patient's CBC had remained essentially normal without indication of infection. On discharge his white cell count was 9.25 thousand. It was noted however that during workup the patient had a decrease in his EGFR with his baseline creatinine being at 2.2. This indicated a EGFR depressed at 49 mL/m. Also the patient did have mild elevations in his troponins which were trended and noted to be plateaued likely secondary to the patient's chronic kidney disease. I explained that the patient' s chronic kidney disease is likely secondary to his uncontrolled hypertension. The patient should've follow-up with a primary care physician and to be more diligent about his medication usage. The patient was discharged on new medication consisting of clonidine 0.2 mg transdermal patch weekly, lisinopril 20 mg by mouth daily, metoprolol succinate 50 mg by mouth daily. The patient was also kept on his standard dose of hydrochlorothiazide at 25 mg daily. Upon discharge the patient's vital signs were otherwise stable. His blood pressure was at stage I hypertension with a reading of 141/88 mmHg and I suspect that will improve as his medications take effect. The patient had been tolerating his diet and is recommended to continue with a heart healthy diet as tolerated. He is also to have activity as tolerated. The patient is otherwise hemodynamically stable and he is been discharged from acute hospitalization with recommendations listed above. - Patient Instructions Diet: Heart Healthy Diet Activity: As Tolerated Driving: May Drive Today Notify Provider of: Fever, Increased Pain - Discharge Plan *PRESCRIPTION DRUG MONITORING PROGRAM REVIEWED*: No *COPY OF PRESCRIPTION DRUG MONITORING REPORT IN PATIENT DAREN: No Prescriptions/Med Rec: cloNIDine [Catapres TTS-2] 0 each TD WEEKLY #4 patch.tdwk hydroCHLOROthiazide [Hydrochlorothiazide] 25 mg PO DAILY #30 tablet Lisinopril [Prinivil] 20 mg PO DAILY #30 tablet Metoprolol Succinate [Toprol XL 50mg] 50 mg PO DAILY #30 tab.er Home Medications: Home Meds Lisinopril [Prinivil] 20 mg PO DAILY #30 tablet 09/27/18 [Rx] Metoprolol Succinate [Toprol XL 50mg] 50 mg PO DAILY #30 tab.er 09/27/18 [Rx] cloNIDine [Catapres TTS-2] 0 each TD WEEKLY #4 patch.tdwk 09/27/18 [Rx] hydroCHLOROthiazide [Hydrochlorothiazide] 25 mg PO DAILY #30 tablet 09/27/18 [Rx ] Oxygen Therapy Mode: Room Air Patient Handouts: Metoprolol tablets, Hypertension, [id number], Preventing Hypertension, Lisinopril tablets, Clonidine skin patches, Hydrochlorothiazide, HCTZ capsules or tablets Referrals: John Steen MD [Resident] - 10/04/18 2:30 pm - Discharge Summary/Plan Comment DC Time >30 min.: Yes - General Info Date of Service: 09/27/18 Admission Dx/Problem (Free Text: Admission Diagnosis/Problem Admission Diagnosis/Problem Hypertensive urgency Functional Status: Reports: Pain Controlled - Review of Systems General: Reports: No Symptoms HEENT: Reports: No Symptoms Pulmonary: Reports: No Symptoms Cardiovascular: Reports: No Symptoms Gastrointestinal: Reports: No Symptoms Genitourinary: Reports: No Symptoms Musculoskeletal: Reports: No Symptoms Skin: Reports: No Symptoms Neurological: Reports: No Symptoms Psychiatric: Reports: No Symptoms - Patient Data Vitals - Most Recent: Last Vital Signs Temp 36.6 C 09/27/18 11:39 Pulse 81 09/27/18 11:39 Resp 18 09/27/18 11:39 BP 134/85 09/27/18 11:39 Pulse Ox 98 09/27/18 11:39 Weight - Most Recent: 122.243 kg I&O - Last 24 hours: Intake & Output 0409/27/18 09/27/18 22:59 06:59 14:59 Intake Total 800 1000 Output Total 500 500 Balance 300 500 Lab Results - Last 24 hrs: Laboratory Results - last 24 hr 09/27/18 09/27/18 Range/Units 05:35 05:35 WBC 6.25 (4.0-11.0) K/uL RBC 4.53 (4.50-5.90) M/uL Hgb 13.2 (13.0-17.0) g/dL Hct 39.2 (38.0-50.0) % MCV 86.5 (80.0-98.0) fL MCH 29.1 (27.0-32.0) pg MCHC 33.7 (31.0-37.0) g/dL RDW Std Deviation 47.9 (28.0-62.0) fl RDW Coeff of Samson 16 H (11.0-15.0) % Plt Count 204 (150-400) K/uL MPV 10.40 (7.40-12.00) fL Neut % (Auto) 68.8 (48.0-80.0) % Lymph % (Auto) 18.7 (16.0-40.0) % [place] % (Auto) 10.7 (0.0-15.0) % Eos % (Auto) 1.0 (0.0-7.0) % Baso % (Auto) 0.8 (0.0-1.5) % Neut # (Auto) 4.3 (1.4-5.7) K/uL Lymph # (Auto) 1.2 (0.6-2.4) K/uL [place] # (Auto) 0.7 (0.0-0.8) K/uL Eos # (Auto) 0.1 (0.0-0.7) K/uL Baso # (Auto) 0.1 (0.0-0.1) K/uL Nucleated RBC % 0.0 /100WBC Nucleated RBCs # 0 K/uL Sodium 142 (136-148) mmol/L Potassium 4.2 (3.5-5.1) mmol/L Chloride 107 (98-107) mmol/L Carbon Dioxide 29.2 (21.0-32.0) mmol/L BUN 22 H (7.0-18.0) mg/dL Creatinine 2.3 H (0.8-1.3) mg/dL Est Cr Clr Drug Dosing 47.16 mL/min Estimated GFR (MDRD) 30.9 ml/min Glucose 101 (74-106) mg/dL Calcium 8.8 (8.5-10.1) mg/dL Med Orders - Current: Current Medications Acetaminophen (Tylenol) 650 mg PO Q6H PRN PRN Reason: Pain Last Admin: 09/25/18 17:23 Dose: 650 mg Clonidine HCl (Catapres) 0.2 mg PO Q8H [facility] Heparin Sodium (Porcine) (Heparin Sodium) 5,000 units SUBCUT Q8HR [facility] Last Admin: 09/27/18 06:04 Dose: 5,000 units Hydrochlorothiazide (Hydrochlorothiazide) 25 mg PO DAILY [facility] Last Admin: 09/27/18 08:35 Dose: 25 mg Lisinopril (Prinivil) 20 mg PO DAILY [facility] Last Admin: 09/27/18 08:37 Dose: 20 mg Metoprolol Succinate (Toprol Xl) 50 mg PO DAILY [facility] Last Admin: 09/27/18 08:36 Dose: 50 mg Sodium Chloride (Saline Flush) 10 ml FLUSH ASDIRECTED PRN PRN Reason: Keep Vein Open Last Admin: 09/25/18 06:08 Dose: 10 ml Sodium Chloride (Saline Flush) 2.5 ml FLUSH ASDIRECTED PRN PRN Reason: Keep Vein Open Last Admin: 09/25/18 06:08 Dose: 2.5 ml Discontinued Medications Aspirin (Aspirin) 324 mg PO ONETIME ONE Stop: 09/25/18 05:56 Last Admin: 09/25/18 06:08 Dose: 324 mg Clonidine HCl (Catapres) 0.1 mg PO ONETIME ONE Stop: 09/25/18 16:45 Last Admin: 09/25/18 16:56 Dose: 0.1 mg Clonidine HCl (Catapres) 0.1 mg PO Q12HR [facility] Last Admin: 09/27/18 08:37 Dose: 0.1 mg Clonidine HCl (Catapres) 0.1 mg PO ONETIME ONE Stop: 09/27/18 09:01 Last Admin: 09/27/18 09:16 Dose: 0.1 mg Furosemide (Lasix) 40 mg IVPUSH NOW ONE Stop: 09/25/18 09:41 Last Admin: 09/25/18 10:32 Dose: 40 mg Labetalol HCl (Normodyne) 20 mg IVPUSH NOW ONE; Protocol Stop: 09/25/18 05:57 Last Admin: 09/25/18 06:07 Dose: 20 mg Lisinopril (Prinivil) 10 mg PO DAILY [facility] Last Admin: 09/25/18 10:33 Dose: 10 mg Nitroglycerin (Nitro-Bid 2%) 0.5 gm TOP ONETIME ONE Stop: 09/25/18 05:57 Last Admin: 09/25/18 06:08 Dose: 0.5 gm Potassium Chloride (Klor-Con M20) 20 meq PO ONETIME ONE Stop: 09/25/18 19:30 Last Admin: 09/25/18 20:37 Dose: 20 meq Potassium Chloride (Klor-Con M20) 40 meq PO ONETIME ONE Stop: 09/26/18 14:28 Last Admin: 09/26/18 15:38 Dose: 40 meq - Exam Quality Assessment: Denies: Supplemental Oxygen General: Reports: Alert, Oriented, Cooperative, No Acute Distress HEENT: Reports: Pupils Equal, Pupils Reactive, EOMI, Mucous Membr. Moist/[place] Neck: Reports: Supple, Trachea Midline, No Thyromegaly Lungs: Reports: Clear to Auscultation, Normal Respiratory Effort Cardiovascular: Reports: Regular Rate, Regular Rhythm, No Murmurs GI/Abdominal Exam: Normal Bowel Sounds, Soft, No Distention (Male) Exam: Deferred Rectal (Males) Exam: Deferred Back Exam: Reports: Normal Inspection, Full Range of Motion Extremities: Normal Inspection, Normal Range of Motion, No Pedal Edema Skin: Reports: Warm, Dry, Intact Wound/Incisions: Reports: Healing Well Neurological: Reports: No New Focal Deficit, Normal Gait Psy/Mental Status: Reports: Alert, Normal Affect, Normal Mood
[2018-09-27] MEDS ORDERED: cloNIDine 0.1 MG Tab PO SCH (17:00)
--- NOTE | 2018-09-29 14:17 | ECHO ---
EXAM DATE: 09/25/18 PATIENT'S AGE: 43 The echocardiogram report can be seen in this patient's EMR (Electronic Medical Record) in the Reports section. The report has also been scanned into PACs. Report Signed by Proxy. TENA
== END 2018-09-27 16:10 | disposition home or self-care (01) ==
LOC: MW.ED 05:40 → MW.ICU 07:09 → MW.MS 09-26 05:08
PROVIDERS: ADMIT Internal Medicine; ATTEND Internal Medicine
DX: I16.0 Hypertensive urgency (principal); I12.9 Hypertensive chronic kidney disease with stage 1 through stage 4 chronic kidney disease, or unspecified chronic kidney disease; N18.9 Chronic kidney disease, unspecified; J45.909 Unspecified asthma, uncomplicated; Z91.040 Latex allergy status; Z79.899 Other long term (current) drug therapy
CPT/HCPCS: 36415; 71045; 80048; 80053; 81001; 82962; 83605; 83880; 84484; 85025; 87804; 93005; 93306; 96372; 96374; 96375; 99284; A9270; G0378; J1644; J1940; J3490